=== PATIENT | female | born 1990 | race Caucasian/White ===

== ENCOUNTER 2018-04-06 11:45 | Day surgery (SDC) | payer OTHER ==
[2014-10-14 03:01] VITALS: BMI 26.7
[2018-04-06] MEDS ORDERED: ceFAZolin IV 1 gm in Dextrose 1 GM/50 ML BAG IVPB ONE (12:49)
[2018-04-06] MEDS ORDERED: Lidocaine Hydrochloride 20 ML INJ ONE (12:49)
[2018-04-06] MEDS ORDERED: Bupivacaine 0.25% 20 ML INJ IJ ONE ×2 (12:49→13:20)
[2018-04-06] MEDS ORDERED: Dexamethasone 4 mg/1 ml ONE (13:20)
[2018-04-06] MEDS ORDERED: Midazolam 2 MG/2 ML VIAL ONE (13:24)
[2018-04-06] MEDS ORDERED: Propofol 10 mg/ml Inj (20 ML) ONE (13:24)
[2018-04-06] MEDS ORDERED: Lactated Ringer's 1,000 ML IV ONE (16:09)
--- NOTE | 2018-04-06 16:10 | PCM.SURG1 ---
Surgeon's Initial Post Op Note - Surgeon's Notes Surgeon: Dr. Mota Digital Marketing Coordinator: Dr. sands PGy-3, Dr. holden pgy-2 Type of Anesthesia: General LMA, Local Anesthesia Administered By: cora Rondon Pre-Operative Diagnosis: bilateral hallux valgus deformity, bilateral hallucal ingrown toenails medial border Operative Findings: see dictation. 2-0 , 4-0 vicryl, 4-0 prolene. 2.7x16mm screw x 2 Post-Operative Diagnosis: same Operation Performed: bilateral cecilia bunionectomy with screw fixation. bilateral hallucal medial border matrixectomies Specimen/Specimens Removed: bone, soft tissue Estimated Blood Loss: EBL {In ML}: 5 Blood Products Given: N/A Drains Used: No Drains Post-Op Condition: Good Date of Surgery/Procedure: 04/06/18 Time of Surgery/Procedure: 16:09
[2018-04-06] MEDS ORDERED: Oxycodone/Acetaminophen 5/325 mg Tab PO PRN ×2 (16:11)
[2018-04-06] MEDS ORDERED: HYDROmorphone 0.5 mg/0.5 ml ISec IVP PRN (16:20)
[2018-04-06] MEDS ORDERED: Lactated Ringer's 1,000 ML IV SCH (16:30)
[2018-04-06 17:53] VITALS: RESP 16
[2018-04-06 18:45] VITALS: BP 120/77; PULSE 81; TEMP 97.6; O2SAT 98
--- NOTE | 2018-04-07 15:29 | RAD ---
Date of service: 04/06/2018 PROCEDURE: Bilateral Feet Radiographs. HISTORY: s/p bilateral surgery COMPARISON: None. FINDINGS: BONES: Postoperative changes JOINTS: Postoperative osteotomy changes right and left distal metatarsals with in situ fixation screws. Surrounding expected mild soft tissue swelling and a small amount subcutaneous air. SOFT TISSUES: As above. OTHER FINDINGS: None. IMPRESSION: Osteotomies distal margins right and left metatarsals with in situ fixation screws.. There is surrounding expected mild postoperative soft tissue changes as above
--- NOTE | 2018-04-09 09:32 | OP ---
PROCEDURE DATE: 04/06/2018 SURGEON: Howard Delarosa DPM ASSISTANTS: Leonel Escudero MD, PGY-1 and Jessica Bryant DPM, PGY-3. ANESTHESIOLOGIST: Everton Ramirez DO ANESTHESIA: IV sedation with local Clark block. PREOPERATIVE DIAGNOSES: Bilateral hallux abductovalgus deformity and bilateral ingrown toenails. POSTOPERATIVE DIAGNOSES: Bilateral hallux abductovalgus deformity and bilateral ingrown toenails. NAME OF PROCEDURES: Bilateral Rosalio bunionectomy and bilateral partial nail avulsion. INDICATIONS: The patient is a 27-year-old female with the above diagnoses. The patient has exhausted all conservative treatment at this time and now reports surgical intervention. The patient signed consent after careful explanation of risks, benefits, complications, and alternatives for surgical procedure. No guarantees were given nor implied. The patient was brought into the operating room table and placed on the operating room table in the supine position. A time-out was performed for identification of the correct patient and procedure. After induction of IV sedation, the patient received a total of 10 mL of 1:1 mixture of 1% lidocaine plain and 0.25% Marcaine plain in a local Clark block type fashion to the left foot and 10 mL of 1:1 mixture of 1% lidocaine plain and 0.25% Marcaine plain in a local Clark block type fashion to the right foot. Once local anesthesia was achieved, bilateral lower extremities were prepped and draped in a normal sterile manner. The patient's right lower extremity was then exsanguinated with the use of an Esmarch, and the pneumatic ankle tourniquet was then inflated to 250 mmHg and the procedure began. PROCEDURE #1: Right foot Rosalio bunionectomy. Attention was then directed to the dorsal aspect of the first metatarsal head, right foot, when approximately 4 cm linear incision was made medial and parallel to the tendon of the extensor hallus longus and involved the contour of the deformity. The incision was deepened through the subcutaneous tissues using sharp and blunt dissection. Care was taken to identify and retract all vital neurovascular structures. All bleeders were cauterized and ligated as necessary. At this time, a linear type capsulotomy was performed over the dorsal aspect of the first metatarsal phalangeal joint. The periosteal and capsular structures were then sharply dissected free of the osseous attachment and was selected medially and laterally, thus exposing the head of the first metatarsal. Next, utilizing a sagittal, bones at the dorsal and medial prominences were resected and passed from the operative field. All rough edges were then smoothened down with a bone rasp. Attention was then directed to the medial aspect of the right first metatarsal head, where a [id number] V-type osteotomy was created in the metaphyseal region of the bone, utilizing an oscillating bone saw, the apex of the osteotomy pointed distally with the arms pointing proximal plantar and proximal dorsal. Upon competition of osteotomy, the capital fragment was distracted and shifted laterally in a more corrected position and impacted upon the first metatarsal shaft. At this time, one 0.062-inch K-wire was driven from dorsal of plantar across the osteotomy site to serve as temporary fixation. Following standard AO principles and technique, a 2.7 x 16 mm screw was inserted across the osteotomy site with excellent compression noted. The temporary K-wire was removed. Attention was then directed to the medial bone shelf which was resected utilizing the oscillating bones and passed from the operative field. Bone wax was applied over the right first metatarsal head. Correction of the deformity was assessed at this time and noted to be excellent. The surgical site was then flushed with copious amounts of sterile normal saline solution. The periosteal and capsular structures were then reapproximated utilizing 2-0 Vicryl. The subcutaneous tissues were reapproximated using 4-0 Vicryl, and then skin was reapproximated using a 4-0 Prolene in a simple type suture. A postoperative block consisting of 10 mL of 0.5 Marcaine was performed in a local fashion. The surgical site was then dressed with Xeroform, followed by gauze, Kerlix, and lastly Coban. PROCEDURE 2: Right partial nail avulsion, Chahal procedure. Next, attention was directed to the medial aspect of the right hallux nail border, utilizing an #15 blade, an inverted type L incision was created at the proximal medial aspect of the nail. Using an [place] anvil, the medial border of the nail was cut back at the most proximal insertion at the nail matrix. Utilizing a hemostat, this medial portion of the nail was removed in its entirety and passed from the operative field. A curette was then used to remove any remaining nail spicules from the medial nail border. Normal saline was then used to copiously lavage the nail border. Incision was sutured with 4-0 Prolene in simple type suture. Gauze and Coban were then used to dress the right hallucal nail. The right lower extremity tourniquet was deflated at this time. PROCEDURE 3: Left foot Rosalio bunionectomy. At this time, the patient's left lower extremity was then exsanguinated with the use of an Esmarch and the pneumatic ankle tourniquet was inflated to 250 mmHg, and the procedure began. Attention was then directed to the dorsal aspect of the first metatarsal head left foot where an approximately 4 cm linear longitudinal incision was made medial and parallel to the tendon of the extensor hallucis longus and involved the contour of the deformity. The incision was deepened through the subcutaneous tissues using sharp and blunt dissection. Care was taken to identify and retract all vital neurovascular structures. All bleeders were cauterized and ligated as necessary. At this time, a linear type capsulotomy was performed over the dorsal aspect of the left first metatarsal phalangeal joint. The periosteal and capsular structures were then carefully dissected free of the osseous attachments and reflected medially and laterally, thus exposing the head of the left first metatarsal. Next, utilizing a sagittal bone saw, the dorsal and medial prominences were resected and passed from the operative field. All rough edges were then smoothened down with a bone rasp. Attention was then directed to the medial aspect of the left first metatarsal head, where a [id number] V-type osteotomy was created in the metaphyseal region of the bone, utilizing an oscillating bone saw. The apex of the osteotomy pointed distally with the arms pointing proximal plantar and proximal dorsal. Upon completion of the osteotomy, the capital fragment was distracted and shifted laterally in a more corrected position and impacted upon the left first metatarsal shaft. At this time, one 0.062 inch K-wire was driven from dorsal to plantar across the osteotomy site to serve as temporary fixation. Following the standard AO techniques and principles, a 2.7 x 16 mm screw was inserted across the osteotomy site with excellent compression. The temporary K-wire was removed at this time. Attention was then directed to the remaining medial bone shelf which was resected utilizing the oscillating bone saw and passed from the operative field. Bone was applied over the left first metatarsal head. Correction of the deformity was noted at this time. The surgical site was then flushed with copious amounts of sterile normal saline solution. The periosteal and capsular structures were the re-approximated utilizing 2-0 Vicryl. The subcutaneous tissue was then re-approximated utilizing 4-0 Vicryl, and then skin was re-approximated using a 4-0 Prolene in simple type suture. A postoperative block consisting of 10 mm of 0.5 Marcaine was performed in a local type fashion. The surgical site was then dressed with Xeroform followed by gauze, Kerlix, and lastly Coban. PROCEDURE 4: Left partial knee nail avulsion, Chahal procedure. Next, attention was directed to the medial aspect of the left hallucal nail border. Utilizing a #15 blade, an inverted L-type incision was created at the proximal medial aspect of the nail. Utilizing an [place] anvil, the medial border of the nail was cut back to its most proximal insertion at the nail matrix, utilizing a hemostat, this medial portion of the nail which was removed in its entirety and passed from the operative field. A curette was then used to remove any of the remaining nail spicules from the medial nail border. Normal saline was then used to copiously lavage the nail border. Incision was sutured with 4-0 Prolene in simple type sutures. Gauze and Coban were then used to dress the hallucal nail. POSTOPERATIVE CONDITION: The patient tolerated the anesthesia and procedure well, and was escorted to the recovery room with vital signs stable and neurovascular status intact to bilateral feet. The patient will be weightbearing as tolerated in a surgical shoe and crutches and will follow up with Dr. Delarosa in his office next week. Leonel Escudero MD Howard Delarosa DPM
== END 2018-04-06 18:55 | disposition home or self-care (01) ==
LOC: C.SDS 11:45
PROVIDERS: ATTEND Podiatrist Foot & Ankle Surgery
DX: M20.21 Hallux rigidus, right foot (principal); M20.22 Hallux rigidus, left foot; L60.0 Ingrowing nail
CPT/HCPCS: 11730; 11732; 28292; 73620; 97116; 97161; G8978; G8979; G8980; J2250; J2704; J3010; J7120